=== PATIENT | male | born 1960 | race Caucasian/White ===

== ENCOUNTER → 2023-01-24 15:36 | Outpatient (CLI) | payer OTHER, SELFPAY ==
--- NOTE | 2023-01-24 15:39 | DI.CT.S_ITS ---
PROCEDURE: CT HEAD/BRAIN WO CON INDICATIONS: Essential tremor TECHNIQUE: Noncontrast 4.5 mm thick angled axial sections acquired from the foramen magnum to the vertex, with coronal and sagittal reformats. For radiation dose reduction, the following was used: automated exposure control, adjustment of mA and/or kV according to patient size. COMPARISON: [facility], , MRI HEAD W/WO CONTRAST, 03/07/2005, 9:47. FINDINGS: Image quality: Excellent. CSF spaces: Basal cisterns are patent. No extra-axial fluid collections. The ventricles are symmetric in size and shape. Brain: No intracranial bleeds or masses. There is cerebral volume loss for age, with resultant ventricular and sulcal prominence. There are periventricular and deep white matter chronic small vessel ischemic changes. There is intracranial internal carotid artery atherosclerosis. Skull and face: Calvarium and visualized facial bones appear intact, without suspicious lesions. Sinuses: Mild mucosal thickening can be seen within the anterior left ethmoid air cells and within the inferior medial left frontal sinus. The paranasal sinuses are otherwise unremarkable. No abnormal fluid is seen within the mastoid air cells. IMPRESSION: No significant noncontrast head CT abnormality can be seen. Additional findings: Focal left maxillary sinus disease Dictated by: River Smith M.D. on 01/24/2023 at 15:27 Approved by: River Smith M.D. on 01/24/2023 at 15:29
== END ==
PROVIDERS: PCP Nurse Practitioner; Referring Provider Neurological Surgery; Visit Provider Neurological Surgery
DX: G25.0 Essential tremor (principal); J32.0 Chronic maxillary sinusitis
CPT/HCPCS: 70450